=== PATIENT | male | born 1950 | race Caucasian/White ===

== ENCOUNTER 2023-04-13 14:55 | Emergency (ER) | payer MEDICARE, MEDICAID ==
[~2023-04-13] VITALS: Ht 175.3 cm; Wt 68.7 kg
[2023-04-13] MEDS ORDERED: proparacaine 0.5% ophthalmic drops 15ml EACHEYE ONE (15:40)
[2023-04-13] MEDS ORDERED: MOXI3DRO25 RIGHTEYE (16:29)
[2023-04-13] MEDS ORDERED: HYDR-3965 PO (16:29)
[2023-04-13 16:48] VITALS: BP 130/79; PULSE 77; RESP 17; TEMP 98.8; O2SAT 98
== END 2023-04-13 16:50 | disposition home or self-care (01) ==
LOC: ER 14:56
DX: T15.01XA Foreign body in cornea, right eye, initial encounter (principal); J44.9 Chronic obstructive pulmonary disease, unspecified; W45.8XXA Other foreign body or object entering through skin, initial encounter; Y93.89 Activity, other specified; Y92.89 Other specified places as the place of occurrence of the external cause; Y99.8 Other external cause status
CPT/HCPCS: 65220; 99284